=== PATIENT | male | born 1990 | race Two or more races ===

== ENCOUNTER → 2023-12-28 | Outpatient (CLI) | payer OTHER | LOC: M PLAIMG 13:56 | PROVIDERS: ATTEND Orthopaedic Surgery | DX: M25.562 Pain in left knee (principal) ==

== ENCOUNTER 2024-01-22 03:10 | Inpatient (IN) | payer OTHER ==
[~2024-01-22] VITALS: Ht 179.1 cm; Wt 87.6 kg
[2024-01-22 04:56] LABS: BASO % 0.4 % (0.0-1.0); EOS # 0.1 10^3/uL (0.0-0.5); HEMATOCRIT 43.3 % (42.0-52.0); HEMOGLOBIN 14.5 g/dl (13.5-17.5); LYMPH # 2.6 10^3/uL (1.5-5.0); LYMPH % 33.2 % (24.0-44.0); MEAN CORPUSCULAR HEMOGLOBIN 27.7 pg (27.0-33.0); MEAN CORPUSCULAR HGB CONC 33.5 g/dl (32.0-36.5); MEAN CORPUSCULAR VOLUME 82.6 fl (80.0-96.0); MONO # 0.7 10^3/uL (0.0-0.8); MONO % 8.5 % (2.0-8.0); NEUTROPHILS # 4.5 10^3/uL (1.5-8.5); NEUTROPHILS % 56.6 % (36.0-66.0); PLATELET COUNT, AUTOMATED 266 10^3/uL (150-450); RED BLOOD COUNT 5.24 10^6/uL (4.30-6.10); WHITE BLOOD COUNT 7.9 10^3/uL (4.0-10.0)
[2024-01-22 05:18] LABS: LIPASE 36 U/L (12-53)
[2024-01-22 05:20] LABS: ALBUMIN 4.2 G/DL (3.2-5.2); ALKALINE PHOSPHATASE 56 U/L (46-116); ALT/SGPT 23 U/L (7.0-40); AST/SGOT 12 U/L (<34); BILIRUBIN,DIRECT 0.2 MG/DL (<0.4); BILIRUBIN,TOTAL 0.4 MG/DL (0.3-1.2); TOTAL PROTEIN 7.4 G/DL (5.7-8.2)
[2024-01-22 06:45] LABS: CK-MB VALUE MASS < 1.0 NG/ML (<3.6)
[2024-01-22 06:46] LABS: BLOOD UREA NITROGEN 14 MG/DL (9-23); CALCIUM LEVEL 9.5 MG/DL (8.5-10.1); CARBON DIOXIDE LEVEL 26 MMOL/L (20-31); CHLORIDE LEVEL 106 MMOL/L (98-107); CPK CREATINE PHOSPHOKINASE 81 U/L (46-171); CREATININE FOR GFR 0.73 MG/DL (0.70-1.30); GLOMERULAR FILTRATION RATE > 60.0 (>60); GLUCOSE, FASTING 111 MG/DL (60-100); MB/CK RELATIVE INDEX 1.23 (< OR =4); POTASSIUM SERUM 3.9 MMOL/L (3.5-5.1); SODIUM LEVEL 141 MMOL/L (136-145)
[2024-01-22] MEDS ORDERED: ISOVUE-370 76% 100ML VIAL As Ordered ONE (07:16)
[2024-01-22] MEDS: ONDANSETRON 4MG 2ML VIAL IV ONE (08:04)
[2024-01-22] MEDS: NS 1,000 ML IV ONE (08:04)
[2024-01-22] MEDS: KETOROLAC 30 MG/ML 1ML VIAL IV ONE (08:04)
[2024-01-22 09:17] LABS: Trichomonas vaginalis (AMP) NOT DETECTED (NEGATIVE)
[2024-01-22 09:41] LABS: GC DNA AMPLIFICATION NEGATIVE (NEGATIVE)
[2024-01-22 13:25] LABS: AMPHETAMINES LEVEL URINE NEGATIVE (NEGATIVE); BARBITURATES URINE NEGATIVE (NEGATIVE); BENZODIAZEPINES URINE NEGATIVE (NEGATIVE); COCAINE METABOLITE URINE NEGATIVE (NEGATIVE); METHADONE URINE NEGATIVE (NEGATIVE); OPIATES URINE NEGATIVE (NEGATIVE); PHENCYCLIDINE URINE NEGATIVE (NEGATIVE)
[2024-01-22 13:31] LABS: CANNABINOIDS URINE POSITIVE (NEGATIVE)
[2024-01-22] MEDS ORDERED: CELE0.09 PO (13:43)
[2024-01-22] MEDS ORDERED: HOME MED LIST COMPLETE! XX SCH (13:45)
[2024-01-22 14:21] LABS: ETHYL ALCOHOL (ETHANOL) < 0.003 % (0.000-0.010)
[2024-01-22 14:22] LABS: SALICYLATE LEVEL < 3.0 MG/DL (<30)
[2024-01-22] MEDS ORDERED: MOM 30ML SUSPENSION UDC PO PRN (18:05)
[2024-01-22] MEDS ORDERED: diphenhydrAMINE 25MG CAP PO PRN (18:05)
[2024-01-22] MEDS ORDERED: MAALOX 30 ML SUSP *UDC PO PRN (18:05)
[2024-01-22] MEDS ORDERED: traZODone 50 MG TAB PO PRN (18:05)
[2024-01-22] MEDS ORDERED: ACETAMINOPHEN TAB 650MG DOSE (2X325MG) PO PRN (18:05)
[2024-01-22] MEDS: IBUPROFEN 400MG TAB PO PRN (20:48)
[2024-01-22 21:32] VITALS: BP 142/102; TEMP 98.6; O2SAT 97
[2024-01-22 22:45] VITALS: BP 140/87; TEMP 98.2; O2SAT 99
[2024-01-23 06:19] VITALS: BP 138/90; TEMP 97.3; O2SAT 97
[2024-01-23 18:40] VITALS: BP 136/88; TEMP 98.5
[2024-01-24 06:30] VITALS: BP 145/88; TEMP 97.2; O2SAT 99
[2024-01-24 18:16] VITALS: BP 150/82; TEMP 98.4
[2024-01-24] MEDS: ONDANSETRON 4MG ORAL DISINTEGRATING TAB PO PRN (18:22)
[2024-01-25 06:34] VITALS: BP 151/77; TEMP 98.2; O2SAT 98
[2024-01-25] MEDS: CelecoXIB (CeleBREX) 100 MG CAP PO STA (10:10)
== END 2024-01-25 12:32 | disposition home or self-care (01) | DRG 882 ==
LOC: M ED 03:10 → EEVIPCON 03:10 → M ED INP 18:04 → M PSY 21:32
PROVIDERS: ADMIT Student in an Organized Health Care Education/Training Program; ATTEND Psychiatry & Neurology Child & Adolescent Psychiatry
DX: F43.10 Post-traumatic stress disorder, unspecified (principal); R45.851 Suicidal ideations; F41.9 Anxiety disorder, unspecified; F32.A Depression, unspecified; F17.290 Nicotine dependence, other tobacco product, uncomplicated; Z63.0 Problems in relationship with spouse or partner; Z62.810 Personal history of physical and sexual abuse in childhood; Z62.811 Personal history of psychological abuse in childhood; Z79.899 Other long term (current) drug therapy; S82.002D Unspecified fracture of left patella, subsequent encounter for closed fracture with routine healing; Z91.414 Personal history of adult intimate partner abuse

== ENCOUNTER → 2024-05-21 | Outpatient (CLI) | payer OTHER ==
[~2024-05-21] MED LIST: CELE0.09 PO
== END ==
LOC: M RAD 06:59
PROVIDERS: ATTEND Dentist
DX: M26.622 Arthralgia of left temporomandibular joint (principal)